=== PATIENT | male | born 1940 | race Caucasian/White ===

== ENCOUNTER 2021-11-02 11:01 | Emergency (ER) | payer MEDICARE, BC ==
[2021-11-02] MEDS ORDERED: Sodium Chloride 0.9% 10 ML Syringe FLUSH PRN (11:26)
[2021-11-02] MEDS ORDERED: Sodium Chloride 0.9% 2.5 ML Syringe FLUSH PRN (11:26)
[2021-11-02 11:58] LABS: CARBON DIOXIDE,CO2 19.8 mmol/L (21.0-32.0); POTASSIUM,K 4.7 mmol/L (3.5-5.1)
[2021-11-02 12:11] LABS: CORONAVIRUS COVID-19 NAA NEGATIVE (NEGATIVE); INFLUENZA A NAA NEGATIVE (NEGATIVE); INFLUENZA B NAA NEGATIVE (NEGATIVE)
[2021-11-02] MEDS ORDERED: Aspirin 81 MG Tab.Chew PO ONE ×2 (12:16→12:20)
[2021-11-02] MEDS ORDERED: Aspirin 81 MG Tab.Chew ONE (12:18)
[2021-11-02] MEDS ORDERED: Heparin Sodium 5,000 Units/ML Vial IVPUSH ONE (12:28)
[2021-11-02] MEDS ORDERED: Heparin Sodium 5,000 Units/ML Vial ONE (12:28)
[2021-11-02] MEDS ORDERED: Heparin Sodium/0.45% NaCl 500 ML IV SCH (12:30)
[2021-11-02] MEDS ORDERED: Tenecteplase 50 MG Kit IV ONE (12:33)
== END 2021-11-02 13:13 ==
LOC: MW.ED 11:01
DX: I21.3 ST elevation (STEMI) myocardial infarction of unspecified site (principal); N18.9 Chronic kidney disease, unspecified; R74.01 Elevation of levels of liver transaminase levels; D72.829 Elevated white blood cell count, unspecified; Z79.899 Other long term (current) drug therapy; Z79.84 Long term (current) use of oral hypoglycemic drugs; Z20.822 Contact with and (suspected) exposure to COVID-19
CPT/HCPCS: 0240U; 36415; 71045; 80053; 84484; 85025; 85610; 85730; 93005; 96365; 96375; 99291; A9270; J1644; J3101; J3490; 93010